=== PATIENT | male | born 1980 | race Two or more races ===

== ENCOUNTER 2021-09-20 17:44 | Emergency (ER) | payer SELFPAY ==
[~2021-09-20] VITALS: Ht 152.4 cm; Wt 100.7 kg
--- NOTE | 2021-09-20 17:53 | NUR ---
CALLED FOR TRIAGE, NO RESPONSE
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
[2021-09-20] MEDS ORDERED: ACET650T10 PO (18:17)
[2021-09-20] MEDS ORDERED: CYCL5TAB PO (18:17)
[2021-09-20] MEDS ORDERED: ACETAMINOPHEN 325 MG TABLET ONE (18:30)
[2021-09-20] MEDS ORDERED: CYCLOBENZAPRINE 10 MG TABLET ONE (18:30)
[2021-09-20] MEDS: CYCLOBENZAPRINE 10 MG TABLET PO ONE (18:32)
[2021-09-20] MEDS: ACETAMINOPHEN 325 MG TABLET PO ONE (18:32)
--- NOTE | 2021-09-20 18:57 | NUR ---
Patient discharged to home in stable condition. Written and verbal after care instructions given. Patient verbalizes understanding of instruction.
[2021-09-20 18:58] VITALS: BP 131/81
== END 2021-09-20 18:58 | disposition home or self-care (01) ==
LOC: ER 17:52
DX: S46.911A Strain of unspecified muscle, fascia and tendon at shoulder and upper arm level, right arm, initial encounter (principal); R51.9 Headache, unspecified; Z88.8 Allergy status to other drugs, medicaments and biological substances; Z60.2 Problems related to living alone; Z79.899 Other long term (current) drug therapy; V43.52XA Car driver injured in collision with other type car in traffic accident, initial encounter; Y93.89 Activity, other specified; Y92.413 State road as the place of occurrence of the external cause; Y99.8 Other external cause status